=== PATIENT | female | born 1930 | race Caucasian/White ===

== ENCOUNTER 2018-12-29 13:45 | Observation (INO) | payer MEDICARE, BC ==
[2018-12-29] MEDS ORDERED: Sodium Chloride 0.9% 1,000 ML IV SCH ×2 (14:30→20:00)
--- NOTE | 2018-12-29 14:39 | EDM.PDOC ---
ED HPI GENERAL MEDICAL PROBLEM - General Source of Information: Reports: Patient, Family (granddaughter) History Limitations: Reports: No Limitations <Cesar Becker - Last Filed: 12/29/18 16:04> <David Carbajal - Last Filed: 12/29/18 17:22> - General Chief Complaint: Syncope Stated Complaint: DIZZINESS, FALLS Time Seen by Provider: 12/29/18 14:07 - History of Present Illness INITIAL COMMENTS - FREE TEXT/NARRATIVE: Patient brought to ER by granddaughter (Dotty Marin NP) after falling in her bathroom at her assisted living. She had just gotten up from bed and went to the bathroom for a BM; after getting up to back to her bed she suddenly fell and awoke to find herself lying on the floor. She denies any head or neck pain and doesn't think she hit her head. She did have some lightheadedness that is continuing. Had some blurry vision but now resolved. She doesn't take any blood thinners. She has had a couple UTIs in the past year but denies dysuria or abdominal pain. No significant cardiac history. Pt denies history of feeling lightheaded when she gets up from sitting or lying. (Cesar Becker) - Related Data Allergies Allergy/AdvReac Type Severity Reaction Status Date / Time levofloxacin [From Levaquin] Allergy Dizziness Verified 12/29/18 16:17 Penicillins Allergy Cannot Verified 12/29/18 16:17 Remember rofecoxib [From Vioxx] Allergy Cannot Verified 12/29/18 16:17 Remember Home Meds: Home Meds Levothyroxine [Synthroid] 50 mcg PO ACBREAKFAST 08/26/16 [History] Verapamil HCl [Verapamil] 120 mg PO DAILY 08/26/16 [History] Acetaminophen [Acetaminophen ER] 1,300 mg PO 0900 12/29/18 [History] Acetaminophen [Acetaminophen ER] 650 mg PO BEDTIME 12/29/18 [History] Calcium Citrate/Vitamin D3 [Calcitrate + Vit D Cap (315 MG/250 UNITS)] 1 each PO BID 12/29/18 [History] Cetirizine [ZyrTEC] 10 mg PO DAILY PRN 12/29/18 [History] Diclofenac Sodium [Voltaren 1%] 1 applic TOP BID 12/29/18 [History] Donepezil [Aricept] 10 mg PO BEDTIME 12/29/18 [History] Hydrocortisone [Hydrocortisone 1% Crm] 1 applic TOP BID PRN 12/29/18 [History] Loperamide [Imodium] 4 mg PO ASDIRECTED PRN 12/29/18 [History] Multivitamin W-Minerals/Lutein [Vision Plus Lutein Vitamin] 1 each PO DAILY [History] Polyethylene Glycol 3350 [MiraLAX] 17 gm PO Q2D 12/29/18 [History] Past Medical History HEENT History: Reports: Cataract, Impaired Vision Cardiovascular History: Reports: High Cholesterol Genitourinary History: Reports: Urinary Incontinence 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 WORKER History: Reports: Other (See Below) Other BROOM WORKER History: G-2 P-2 Musculoskeletal History: Reports: Arthritis Endocrine/Metabolic History: Reports: Hypothyroidism - Infectious Disease History Infectious Disease History: Reports: Shingles - Past Surgical History HEENT Surgical History: Reports: Cataract Surgery <Cesar Becker Last Filed: 12/29/18 16:04> Social & Family History - Family History Family Medical History: Noncontributory - Caffeine Use Caffeine Use: Reports: Coffee <Cesar Becker Last Filed: 12/29/18 16:04> ED ROS GENERAL - Review of Systems Review Of Systems: See Below Constitutional: Denies: Fever, Chills, Malaise, Weakness HEENT: Denies: Ear Pain, Sinus Problem, Throat Pain, Vertigo, Vision Change ( briefly but gone now) Respiratory: Denies: Shortness of Breath, Wheezing, Cough Cardiovascular: Reports: Lightheadedness, Syncope. Denies: Chest Pain GI/Abdominal: Denies: Abdominal Pain, Constipation, Diarrhea, Vomiting : Reports: Frequency (not very often she says). Denies: Dysuria, Flank Pain, Incontinence Musculoskeletal: Denies: Neck Pain, Shoulder Pain, Arm Pain, Back Pain, Hand Pain, Leg Pain, Foot Pain Skin: Denies: Cyanosis, Jaundice, Mottled, Pallor, Diaphoresis Neurological: Reports: Syncope. Denies: Confusion, Dizziness, Headache, Seizure , Trouble Speaking, Difficulty Walking Psychiatric: Denies: Agitation, Anxiety, Confusion <Cesar Becker Last Filed: 12/29/18 16:04> - Physical Exam Exam: See Below Exam Limited By: No Limitations General Appearance: Alert, WD/WN, No Apparent Distress Eye Exam: Bilateral Eye: EOMI, Normal Inspection (full visual rowley), PERRL Ears: Normal External Exam, Normal Canal (except significant cerumen blocking most of canal), Hearing Grossly Normal Nose: Normal Inspection, No Blood Throat/Mouth: Normal Inspection, Normal Lips, Normal Oropharynx, Normal Voice, No Airway Compromise Head Exam: Atraumatic, Normocephalic. No: Scalp Lacerations, Scalp Swelling, Scalp Abrasions, Scalp Ecchymosis, Scalp Hematoma, Scalp Tenderness, Facial Abrasions, Facial Ecchymosis, Facial Lacerations, Facial Swelling Neck: Normal Inspection, Supple, Non-Tender, Full Range of Motion. No: Tender Lateral, Tender Midline Respiratory/Chest: No Respiratory Distress, Lungs Clear, Normal Breath Sounds, No Accessory Muscle Use Cardiovascular: Regular Rate, Rhythm, No Murmur GI/Abdominal: Normal Bowel Sounds, Soft, Non-Tender, No Organomegaly, No Distention, No Abnormal Bruit, No Mass Neuro Exam (Abbreviated): Alert, Oriented, CN II-XII Intact, Normal Cognition, No Motor/Sensory Deficits Back Exam: Normal Inspection, Full Range of Motion. 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) Psychiatric: Normal Affect, Normal Mood Skin Exam: Warm, Dry, Intact, Normal Color, No Rash <Cesar Becker - Last Filed: 12/29/18 16:04> Course <Cesar Becker - Last Filed: 12/29/18 16:04> <David Carbajal - Last Filed: 12/29/18 17:22> - Vital Signs Last Recorded V/S: Last Vital Signs Temp 37.1 C 12/29/18 14:15 Pulse 72 12/29/18 14:15 Resp 14 12/29/18 14:15 BP 150/76 H 12/29/18 14:15 Pulse Ox 94 L 12/29/18 14:15 Orthostatic Blood Pressure [ 161/73 Standing] Orthostatic Blood Pressure [ 149/71 Sitting] Orthostatic Blood Pressure [ 160/70 Supine] - Orders/Labs/Meds Orders: Active Orders 24 hr Category Date Time Status EKG Documentation Completion [RC] ASDIRECTED Care 12/29/18 14:27 Active Orthostatic Vital Signs [RC] ASDIRECTED Care 12/29/18 14:39 Active UA W/MICROSCOPIC [URIN] Stat Lab 12/29/18 15:55 Ordered Sodium Chloride 0.9% [Normal Saline] 1,000 ml Med 12/29/18 14:30 Active IV ASDIRECTED EKG 12 Lead [EK] Routine Ther 12/29/18 14:27 Ordered Medication Orders Sodium Chloride (Normal Saline) 1,000 mls @ 999 mls/hr IV ASDIRECTED MAGUI Last Admin: 12/29/18 15:21 Dose: 999 mls/hr Labs: Laboratory Tests 12/29/18 12/29/18 Range/Units 14:53 14:53 WBC 10.90 H (5.00-10.00) 10^3/uL RBC 3.20 L (3.80-5.50) 10^6/uL Hgb 10.8 L (12.0-16.0) g/dL Hct 32.2 L (37.0-47.0) % MCV 100.6 H D (82.0-92.0) fL MCH 33.8 H (27.0-31.0) pg MCHC 33.5 (32.0-36.0) g/dL RDW 13.7 (11.5-14.5) % Plt Count 335 (150-400) 10^3/uL MPV 9.2 (7.4-10.4) fL Add Manual Diff Yes Neutrophils % (Manual) 86 H (50-70) % Lymphocytes % (Manual) 8 L (20-40) % Monocytes % (Manual) 5 (2-8) % Eosinophils % (Manual) 1 (1-3) % Basophils % (Manual) 0 (0-1) % Absolute Neutrophils 9.37 Lymphocytes # (Manual) 0.87 Monocytes # (Manual) 0.55 Eosinophils # (Manual) 0.11 Basophils # (Manual) 0 Sodium 135 L (136-145) mmol/L Potassium 4.0 (3.3-5.3) mmol/L Chloride 105 (98-115) mmol/L Carbon Dioxide 27.7 (21.0-32.0) mmol/L Anion Gap 6.3 (5-15) mmol/L BUN 36 H D (6-25) mg/dL Creatinine 1.48 H (0.51-1.17) mg/dL Est Cr Clr Drug Dosing 19.34 mL/min Estimated GFR (MDRD) 33 mL/min Glucose 104 H (75 - 99) mg/dL Calcium 9.0 (8.7-10.3) mg/dL Total Bilirubin 0.4 (0.2-1.0) mg/dL AST 18 (15-37) U/L ALT 17 (12-78) U/L Alkaline Phosphatase 69 (46-116) IU/L Total Protein 6.6 (6.4-8.2) g/dL Albumin 2.92 L (3.00-4.80) g/dL Meds: Medications Generic Name Dose Route Start Last Admin Trade Name Freq PRN Reason Stop Dose Admin Sodium Chloride 1,000 mls @ 999 mls/hr 12/29/18 14:30 12/29/18 15:21 Normal Saline IV 999 mls/hr ASDIRECTED [facility] Administration - Re-Assessments/Exams Free Text/Narrative Re-Assessment/Exam: 12/29/18 15:40 WBC is 10.9 no differential or UA yet. I auscultated again and heard some crackles in bases so will get CXR. Patient is feeling better now after some fluids are in. She is eating some toast and sitting comfortably. 12/29/18 16:04 ANC of 9.3 and still waiting on results from UA and CXR for etiology. Patient was feeling okay sitting but when she stood up to go for xray she became lightheaded again. We will likely either do observation or admission depending on further results. GIANCARLO Batista will be taking over at this time. (Cesar Becker) Departure <Cesar Becker - Last Filed: 12/29/18 16:04> - Departure Time of Disposition: 17:20 Condition: Fair <David Carbajal - Last Filed: 12/29/18 17:22> - Departure Disposition: Refer to Observation Clinical Impression: Syncope Qualifiers: Encounter type: initial encounter - Discharge Information Referrals: Heraclio,Marcial M, SUPERVISOR/PORT DIRECTOR [Primary Care Provider] - Forms: ED Department Discharge <Cesar Becker - Last Filed: 12/29/18 16:04> <David Carbajal - Last Filed: 12/29/18 17:22> - Assessment/Plan Assessment:: 1. Syncope 2. Orthostatic Hypotension (David Carbajal) Plan: 1. Admit to [facility] Obs 2. monitoring coordinator 3. supportive care (David Carbajal)
[2018-12-29 15:28] LABS: ANION GAP 6.3 mmol/L (5-15)
--- NOTE | 2018-12-29 16:30 | CR ---
[id number] RAD/RAD Chest PA And Lateral EXAM: RAD Chest PA And Lateral CLINICAL DATA: ELEVATED WHITE BLOOD CELL COUNT. CRACKLES ON AUSCULTATION. COMPARISON: NO PREVIOUS SIMILAR EXAM IS AVAILABLE. FINDINGS: There is scar at the left lung base. The lungs are hyperaerated. There is no infiltrate seen. There is mild pleural reaction at both lung bases. The cardiac silhouette is mildly prominent. IMPRESSION: NO PNEUMONIA. Dave Raza MD 12/29/18 2090 Thank you for allowing us to participate in the care of your patient.
[2018-12-29] MEDS ORDERED: Sodium Chloride 0.9% 10 ML Syringe FLUSH PRN (17:23)
--- NOTE | 2018-12-29 19:30 | PCM.HP ---
H&P History of Present Illness - General Date of Service: 12/29/18 Admit Problem/Dx: Admission Diagnosis/Problem Admission Diagnosis/Problem Syncope Source of Information: Patient, Old Records, Provider, RN History Limitations: Reports: No Limitations. Denies: Altered Mental Status - Related Data Allergies/Adverse Reactions: Allergies Allergy/AdvReac Type Severity Reaction Status Date / Time levofloxacin [From Levaquin] Allergy Dizziness Verified 12/29/18 16:17 Penicillins Allergy Cannot Verified 12/29/18 16:17 Remember rofecoxib [From Vioxx] Allergy Cannot Verified 12/29/18 16:17 Remember Home Medications: Home Meds Levothyroxine [Synthroid] 50 mcg PO ACBREAKFAST 08/26/16 [History] Acetaminophen [Acetaminophen ER] 1,300 mg PO 0900 12/29/18 [History] Acetaminophen [Acetaminophen ER] 650 mg PO BEDTIME 12/29/18 [History] Calcium Citrate/Vitamin D3 [Calcitrate + Vit D Cap (315 MG/250 UNITS)] 1 each PO BID 12/29/18 [History] Cetirizine [ZyrTEC] 10 mg PO DAILY PRN 12/29/18 [History] Diclofenac Sodium [Voltaren 1%] 1 applic TOP BID 12/29/18 [History] Donepezil [Aricept] 10 mg PO BEDTIME 12/29/18 [History] Hydrocortisone [Hydrocortisone 1% Crm] 1 applic TOP BID PRN 12/29/18 [History] Loperamide [Imodium] 4 mg PO ASDIRECTED PRN 12/29/18 [History] Multivitamin W-Minerals/Lutein [Vision Plus Lutein Vitamin] 1 each PO DAILY [History] Polyethylene Glycol 3350 [MiraLAX] 17 gm PO Q2D 12/29/18 [History] Verapamil HCl [Calan SR] 120 mg PO DAILY 12/29/18 [History] Past Medical History HEENT History: Reports: Cataract, Impaired Vision Cardiovascular History: Reports: High Cholesterol Genitourinary History: Reports: Urinary Incontinence 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: Reports: Other (See Below) Other OB/BYN History: G-2 P-2 Musculoskeletal History: Reports: Arthritis Psychiatric History: Reports: Dementia Endocrine/Metabolic History: Reports: Hypothyroidism - Infectious Disease History Infectious Disease History: Reports: Shingles - Past Surgical History HEENT Surgical History: Reports: Cataract Surgery GI Surgical History: Reports: Appendectomy, Cholecystectomy Social & Family History - Family History Family Medical History: Noncontributory (reviewd and non contributory to her current admission) - Tobacco Use Smoking Status *Q: Never Smoker Second Hand Smoke Exposure: No - Caffeine Use Caffeine Use: Reports: Coffee - Recreational Drug Use Recreational Drug Use: No H&P Review of Systems - Review of Systems: Review Of Systems: See Below General: Reports: No Symptoms HEENT: Reports: Post Nasal Drip. Denies: Headaches, Sinus Congestion, Sore Throat, Vertigo, Visual Changes Pulmonary: Reports: Cough Cardiovascular: Reports: Lightheadedness, Syncope. Denies: Edema, Claudication , Blood Pressure Problem Gastrointestinal: Reports: No Symptoms Genitourinary: Reports: No Symptoms Musculoskeletal: Reports: Joint Pain (Right knee pain) Skin: Reports: No Symptoms Psychiatric: Reports: Confusion, Anxiety. Denies: Cravings, Hallucinations, Hallucinations (Auditory) Neurological: Reports: Dizziness. Denies: Numbness, Paresthesia, Tremors, Difficulty Walking, Change in Speech Hematologic/Lymphatic: Reports: No Symptoms Immunologic: Reports: No Symptoms Exam - Exam Exam: See Below - Vital Signs Vital Signs: Last Vital Signs Temp 97.6 F 12/29/18 17:23 Pulse 57 L 12/29/18 17:23 Resp 16 12/29/18 17:23 BP 152/56 H 12/29/18 17:23 Pulse Ox 98 12/29/18 17:23 Orthostatic Blood Pressure [ 161/73 Standing] Orthostatic Blood Pressure [ 149/71 Sitting] Orthostatic Blood Pressure [ 160/70 Supine] Weight: 96 lb 3.2 oz - Exam Quality Assessment: No: Supplemental Oxygen General: Cooperative. No: Mild Distress HEENT: Hearing Intact, Other (Bilateral wax buildup cerumen) Neck: Supple, +2 Carotid Pulse wo Bruit. No: Full Range of Motion, Lymphadenopathy Lungs: Clear to Auscultation, Normal Respiratory Effort Cardiovascular: Regular Rate, Regular Rhythm GI/Abdominal Exam: Soft. No: Guarding, Rigid (Female) Exam: Deferred Back Exam: No: CVA Tenderness (L), CVA Tenderness (R) Extremities: Joint Swelling (Possible small effusion right knee medially effusion). No: Pedal Edema, Increased Warmth Peripheral Pulses: 1+: Carotid (R), 2+: Carotid (L), Radial (L), Radial (R) Skin: Warm, Dry, Intact Neurological: Cranial Nerves Intact, Normal Speech, Normal Tone, Sensation Intact Neuro Extensive - Mental Status: Alert, Oriented x3, Memory Intact Neuro Extensive - Motor, Sensory, Reflexes: CN II-XII Intact. No: Ataxia, Tongue Deviation (R), Receptive Aphasia, Expressive Aphasia, Hemeplagia (R), Hemeplagia (L) Psychiatric: Alert, Normal Affect, Anxious. No: Depressed, Hallucinations - Patient Data Lab Results Last 24 hrs: Laboratory Results - last 24 hr 12/29/18 12/29/18 12/29/18 Range/Units 14:53 14:53 16:38 WBC 10.90 H (5.00-10.00) 10^3/uL RBC 3.20 L (3.80-5.50) 10^6/uL Hgb 10.8 L (12.0-16.0) g/dL Hct 32.2 L (37.0-47.0) % MCV 100.6 H D (82.0-92.0) fL MCH 33.8 H (27.0-31.0) pg MCHC 33.5 (32.0-36.0) g/dL RDW 13.7 (11.5-14.5) % Plt Count 335 (150-400) 10^3/uL MPV 9.2 (7.4-10.4) fL Add Manual Diff Yes Neutrophils % (Manual) 86 H (50-70) % Lymphocytes % (Manual) 8 L (20-40) % Monocytes % (Manual) 5 (2-8) % Eosinophils % (Manual) 1 (1-3) % Basophils % (Manual) 0 (0-1) % Absolute Neutrophils 9.37 Lymphocytes # (Manual) 0.87 Monocytes # (Manual) 0.55 Eosinophils # (Manual) 0.11 Basophils # (Manual) 0 Sodium 135 L (136-145) mmol/L Potassium 4.0 (3.3-5.3) mmol/L Chloride 105 (98-115) mmol/L Carbon Dioxide 27.7 (21.0-32.0) mmol/L Anion Gap 6.3 (5-15) mmol/L BUN 36 H D (6-25) mg/dL Creatinine 1.48 H (0.51-1.17) mg/dL Est Cr Clr Drug Dosing 19.34 mL/min Estimated GFR (MDRD) 33 mL/min Glucose 104 H (75 - 99) mg/dL Calcium 9.0 (8.7-10.3) mg/dL Total Bilirubin 0.4 (0.2-1.0) mg/dL AST 18 (15-37) U/L ALT 17 (12-78) U/L Alkaline Phosphatase 69 (46-116) IU/L Total Protein 6.6 (6.4-8.2) g/dL Albumin 2.92 L (3.00-4.80) g/dL Specimen Type Urincc Urine Color Yellow (YELLOW) Urine Appearance Clear (CLEAR) Urine pH 5.5 (5.0-9.0) Ur Specific Orient 1.015 (1.005-1.030) Urine Protein 100 H (NEGATIVE) mg/dL Urine Glucose (UA) Negative (NEGATIVE) mg/dL Urine Ketones Negative (NEGATIVE) mg/dL Urine Occult Blood Negative (NEGATIVE) Urine Nitrite Negative (NEGATIVE) Urine Bilirubin Negative (NEGATIVE) Urine Urobilinogen 0.2 (0.2-1.0) E.U./dL Ur Leukocyte Esterase Negative (NEGATIVE) Urine RBC Not seen (0-5) /HPF Urine WBC 0-5 (0-5) /HPF Ur Epithelial Cells Moderate H /LPF Amorphous Sediment Few (0/HPF) /HPF Urine Bacteria Rare (NONE TO FEW) /HPF Urine Mucus Rare H (NEGATIVE) /LPF Result Diagrams: 12/29/18 14:53 12/29/18 14:53 Problem List Initiated/Reviewed/Updated: Yes Orders Last 24hrs: Active Orders 24 hr Category Date Time Status Patient Status [ADT] Routine ADT 12/29/18 17:23 Ordered Oxygen Therapy [RC] .PRN Care 12/29/18 17:23 Active Up With Assistance [RC] ASDIRECTED Care 12/29/18 17:23 Active VTE/DVT Education [RC] PER UNIT ROUTINE Care 12/29/18 17:23 Active Vital Signs [RC] 0700,1100,1500,1900,2300,0300 Care 12/29/18 17:23 Active Regular Diet [DIET] Diet 12/29/18 Dinner Active Sodium Chloride 0.9% [Saline Flush] Med 12/29/18 17:23 Active 10 ml FLUSH Q8HR PRN Saline Lock Insert [OM.PC] Routine Oth 12/29/18 17:23 Ordered Resuscitation Status Routine Resus Stat 12/29/18 17:23 Ordered EKG 12 Lead [EK] Routine Ther 12/29/18 14:27 Stop Req Medication Orders Sodium Chloride (Saline Flush) 10 ml FLUSH Q8HR PRN PRN Reason: keep vein open Assessment/Plan Comment:: History of present illness Very pleasant 88-year-old female was admitted into observation status after she presented to the ED after coming dizzy and fell at her assisted living facility this morning. The patient is slightly confused on the details however she stated she had just gotten up from bed and went to the bathroom for a BM; after getting up to her bed she suddenly fell and awoke to find herself lying on the her right side. She denies hitting her head. She presented to the ED she did have some ongoing lightheadedness with some blurry vision resolved prior to presentation. She doesn't take any blood thinners. She has had a couple UTIs in the past year but denies dysuria or abdominal pain. No significant cardiac history. Family desired observation as patient would be alone tonight with no one to monitor her. She denies any hearing loss. Pertinent ED workup/findings UA, non-concerning BP 152/86 Orthostatic hypotension Chest x-ray, no acute findings EKG, sinus rhythm, no concerns Primary hospital problem Dehydration, mild, prerenal Orthostatic hypotension Excesses cerumen buildup, bilateral ears Recent fall/fall risk Anemia, macrocytic, no anisocytosis, normal RDW, will w/u as outpatient Anxiety, situational, mildly acute Chronic problems Hypertension Hyperlipidemia Hypothyroidism CKD stage IV, cr cl. 19. Family refused nephrology in past. Dementia, Aricept Onychomycosis History of medication mixup at home Overall plan, Admit to observation, telemetry tonight, gentle IV fluids, bilateral ear irrigation, add Ramelteon. anticipate short stay.
[2018-12-29] MEDS ORDERED: Hydrocortisone 1% Crm 30 GM Tube TOP PRN (19:56)
[2018-12-29] MEDS ORDERED: Loperamide 2 MG Cap PO PRN ×2 (19:56→20:55)
[2018-12-29] MEDS: Donepezil 10 MG Tab PO SCH (21:18)
[2018-12-29] MEDS: Acetaminophen 650 MG Tab.ER PO SCH (21:18)
[2018-12-29] MEDS: Calcium Citrate/Vitamin D3 315 MG-250 Unit Tab PO SCH (21:18)
[2018-12-30] MEDS: Levothyroxine 50 MCG Tab PO SCH (06:37)
[2018-12-30] MEDS: Verapamil 120 MG Tab.ER PO SCH (08:38)
[2018-12-30] MEDS: Calcium Citrate/Vitamin D3 315 MG-250 Unit Tab PO SCH ×2 (08:39→20:46)
[2018-12-30] MEDS: Acetaminophen 650 MG Tab.ER PO SCH ×2 (08:39→20:46)
[2018-12-30] MEDS ORDERED: Verapamil 120 MG Tab.ER PO SCH (09:00)
[2018-12-30] MEDS ORDERED: VERAPAMIL HCL 120 MG PO SCH (09:00)
[2018-12-30 10:07] LABS: ANION GAP 11.5 mmol/L (5-15)
[2018-12-30] MEDS: Fluticasone Propionate Nasal Spray 16 GM Bottle NASBOTH SCH ×2 (12:24→20:47)
[2018-12-30] MEDS: Donepezil 10 MG Tab PO SCH (20:46)
--- NOTE | 2018-12-30 21:06 | PCM.PN ---
- General Info Date of Service: 12/30/18 Admission Dx/Problem (Free Text): Syncope Subjective Update: Mrs. Gonzalez reports feeling a little better than upon presentation, but not quite herself yet. She hasn't been up ambulating much today, but when she has gone to the bathroom, she has felt a little dizzy still. She admits to some recent rhinorrhea. Denies any nasal spray use. She denies any pain, headache, visual changes, tinnitus, swallowing difficulty, numbness, tingling, chest pain, palpitations, shortness of breath, or appetite change. Granddaughter reports generalized progressive decline in the past few months. Nursing reports patient is pleasantly confused, but with no other concerns. She has been on cardiac monitoring without any concerns noted. - Patient Data Vitals - Most Recent: Last Vital Signs Temp 37.1 C 12/30/18 18:42 Pulse 71 12/30/18 18:42 Resp 16 12/30/18 18:42 BP 159/67 H 12/30/18 18:42 Pulse Ox 97 12/30/18 18:42 Orthostatic Blood Pressure [ 161/73 Standing] Orthostatic Blood Pressure [ 149/71 Sitting] Orthostatic Blood Pressure [ 160/70 Supine] Weight - Most Recent: 43.636 kg I&O - Last 24 Hours: Intake & Output 12/30/18 12/30/18 12/30/18 06:59 14:59 22:59 Intake Total 150 720 Balance 150 720 Lab Results Last 24 Hours: Laboratory Results - last 24 hr 12/30/18 12/30/18 Range/Units 09:42 09:42 WBC 9.57 (5.00-10.00) 10^3/uL RBC 3.00 L (3.80-5.50) 10^6/uL Hgb 10.1 L (12.0-16.0) g/dL Hct 30.3 L (37.0-47.0) % MCV 101.0 H (82.0-92.0) fL MCH 33.7 H (27.0-31.0) pg MCHC 33.3 (32.0-36.0) g/dL RDW 13.8 (11.5-14.5) % Plt Count 311 (150-400) 10^3/uL MPV 8.7 (7.4-10.4) fL Immature Gran % (Auto) 0.3 (0.0-5.0) % Neut % (Auto) 89.9 H (50.0-70.0) % Lymph % (Auto) 4.1 L (20.0-40.0) % [place] % (Auto) 4.1 (2.0-8.0) % Eos % (Auto) 1.0 (1.0-3.0) % Baso % (Auto) 0.6 (0.0-1.0) % Immature Gran # (Auto) 0.03 (0.00-0.50) 10^3/uL Neut # (Auto) 8.60 H (2.50-7.00) 10^3/uL Lymph # (Auto) 0.39 L (1.00-4.00) 10^3/uL [place] # (Auto) 0.39 (0.10-0.80) 10^3/uL Eos # (Auto) 0.10 (0.10-0.30) 10^3/uL Baso # (Auto) 0.06 (0.00-0.10) 10^3/uL Sodium 141 (136-145) mmol/L Potassium 3.8 (3.3-5.3) mmol/L Chloride 106 (98-115) mmol/L Carbon Dioxide 27.3 (21.0-32.0) mmol/L Anion Gap 11.5 (5-15) mmol/L BUN 29 H (6-25) mg/dL Creatinine 1.32 H (0.51-1.17) mg/dL Est Cr Clr Drug Dosing 21.07 mL/min Estimated GFR (MDRD) 38 mL/min Glucose 144 H (75 - 99) mg/dL Calcium 8.6 L (8.7-10.3) mg/dL Med Orders - Current: Current Medications Acetaminophen (Tylenol Arthritis Pain) 650 mg PO BEDTIME [facility] Last Admin: 12/30/18 20:46 Dose: 650 mg Acetaminophen (Tylenol Arthritis Pain) 1,300 mg PO DAILY [facility] Last Admin: 12/30/18 08:39 Dose: 1,300 mg Calcium Citrate (Calcium Citrate + D) 1 tab PO BID [facility] Last Admin: 12/30/18 20:46 Dose: 1 tab Donepezil HCl (Aricept) 10 mg PO BEDTIME [facility] Last Admin: 12/30/18 20:46 Dose: 10 mg Fluticasone Propionate (Flonase) 0 gm NASBOTH BID [facility] Last Admin: 12/30/18 20:47 Dose: 1 spray Hydrocortisone (Hydrocortisone 1% Crm) 0 gm TOP BID PRN PRN Reason: Rash Levothyroxine Sodium (Synthroid) 50 mcg PO ACBREAKFAST [facility] Last Admin: 12/30/18 06:37 Dose: 50 mcg Loperamide HCl (Imodium) 2 mg PO ASDIRECTED PRN PRN Reason: Diarrhea Polyethylene Glycol (Miralax) 17 gm PO Q2D [facility] Ramelteon (Rozerem) 8 mg PO BEDTIME [facility] Last Admin: 12/30/18 20:46 Dose: 8 mg Sodium Chloride (Saline Flush) 10 ml FLUSH Q8HR PRN PRN Reason: keep vein open Verapamil HCl (Calan Sr) 120 mg PO DAILY [facility] Last Admin: 12/30/18 08:38 Dose: 120 mg Discontinued Medications Sodium Chloride (Normal Saline) 1,000 mls @ 999 mls/hr IV ASDIRECTED [facility] Last Admin: 12/29/18 15:21 Dose: 999 mls/hr Sodium Chloride (Normal Saline) 1,000 mls @ 65 mls/hr IV ASDIRECTED [facility] Loperamide HCl (Imodium) 4 mg PO ASDIRECTED PRN PRN Reason: Diarrhea - Exam Physical Findings Comments:: GENERAL: Elderly white female lying in hospital bed in no acute distress. HEENT: Normocephalic, atraumatic. Conjunctiva clear. Nares patent with mild erythema bilaterally. Mucous membranes moist, posterior pharynx with mild postnasal drip. R TM without effusion. L TM obstructed due to cerumen. NECK: Supple, no masses. CV: Regular rate and rhythm, no murmurs, rubs, or gallops. 2+ radial pulses. PULMONARY: Normal effort, diminished airflow in bases, otherwise clear to auscultation bilaterally, no wheezes, rales, or rhonchi. ABDOMEN: Positive bowel sounds, soft, nontender, nondistended. EXTREMITIES: No edema, cyanosis, or clubbing. MUSCULOSKELETAL: Moves all extremities well. NEUROLOGICAL: No obvious deficits. DERMATOLOGIC: No rashes or suspicious lesions in exposed areas. PSYCHIATRIC: Alert, interactive, appropriate affect, notably mildly confused. - Problem List Review Problem List Initiated/Reviewed/Updated: Yes - My Orders Last 24 Hours: My Active Orders 12/30/18 11:45 Fluticasone Propionate [Flonase] 0 gm NASBOTH BID - Plan Plan:: HPI summary: 88-year-old female with a history notable for HTN, hypothyroidism, and dementia who presented to the [facility] ED following an episode in which she reported becoming dizzy and then falling at the assisted living facility where she resides. She was slightly confused and didn't know what happened other than she awoke to find herself lying on her right side. In the ED, she did have some ongoing lightheadedness with some reported blurry vision. She notably doesn't have significant neurologic disease, cardiovascular disease, or anticoagulation. Work-up with CBC, CMP, UA, CXR, and EKG overall unremarkable. She was admitted into observation status for further monitoring. Admission H&P states that there was orthostatic hypotension noted in the ED, but review of the blood pressures and pulses notes that there was not the necessary drop in BP or rise in BP to be considered orthostatic. Hospitalization problems: # Syncope/presyncope # Fall # Leukocytosis, resolved # Rhinitis # L cerumen impaction # Dementia She reports improvement, but not resolution of lightheadedness which she states is an overall new complaint. Exam notes rhinorrhea as well as impacted L ear canal (R was successfully disimpacted with ear wash), but no neurological deficits to necessitate head imaging at this time. Leukocytosis noted on admission resolved on recheck. Granddaughter reports generalized progressive decline in the past few months, which is also likely playing a role. Volume status also likely chronically mildly depleted additionally playing a role. - Encourage fluid intake and ambulation throughout the day while monitoring lightheadedness - Flonase nasal spray BID - Debrox ear drops followed by nursing ear wash next week - Continue donepezil - Consider physical therapy referral as outpatient Chronic, stable conditions: # HTN: Stable. Verapamil 120mg. # Constipation: Stable. PEG. # CKD, stage IV, with proteinuria: Baseline Cr 1.7 lately. Previously declined nephrology consultation. Cr 1.48 on admission and UA with 100 protein. Cr 1.32 on 12/30/18. Obtain basic CKD labs tomorrow, including Fe panel, reticulocyte count, and PTH. # [place], macrocytic: Obtain folate and B12. # Hypothyroidism: 11/01/18 TSH 1.81. Levothyroxine 50mcg. # Osteoporosis: 11/09/17 DEXA with osteoporosis. Ca/D. Received denosumab 11/2017 , but not since; check into status with patient/PCP. # Osteoarthritis, generalized: Stable. Tylenol BID, diclofenac gel prn. Hospitalization details: # FEN: No IVF. Electrolytes normal. Regular diet. # PPX: Ambulate for DVT ppx. Ramelteon for delirium ppx. # Code status: FULL. # Emergency contact: Son, Aleks, who was updated by nursing staff when he arrived following rounds. Granddaughter, Dotty, was updated by myself. # Disposition: Continue in observation status with interventions discussed above. If no concerns arise in the next day, anticipate discharge to [facility] tomorrow with consideration of physical therapy evaluation and treatment as outpatient/home health. Given progressive dementia, recommend referral for discussion of health care directives in the future.
[2018-12-31] MEDS: Levothyroxine 50 MCG Tab PO SCH (07:26)
[2018-12-31] MEDS: Verapamil 120 MG Tab.ER PO SCH (08:30)
[2018-12-31] MEDS: Calcium Citrate/Vitamin D3 315 MG-250 Unit Tab PO SCH (08:31)
[2018-12-31] MEDS: Acetaminophen 650 MG Tab.ER PO SCH (08:31)
[2018-12-31 08:35] VITALS: BP 159/75
[2018-12-31] MEDS: Fluticasone Propionate Nasal Spray 16 GM Bottle NASBOTH SCH (08:35)
[2018-12-31] MEDS ORDERED: Polyethylene Glycol 3350 Powder 17 GM Packet PO SCH (09:00)
--- NOTE | 2018-12-31 10:14 | PCM.DCSUM1 ---
Discharge Summary - Hospital Course Free Text/Narrative:: Date of admission: 12/29/18 Date of discharge: 12/31/18 Admission diagnoses: # Syncope/presyncope # Fall # Leukocytosis, resolved # Rhinitis # L cerumen impaction # Dementia # Osteoporosis Discharge diagnoses: # Syncope/presyncope # Fall # Leukocytosis, resolved # Rhinitis # L cerumen impaction # Dementia # Osteoporosis Hospital course: 88-year-old female with a history notable for HTN, hypothyroidism, and dementia who presented to the [facility] ED following an episode in which she reported becoming dizzy and then falling at the assisted living facility where she resides. She was slightly confused and didn't know what happened other than she awoke to find herself lying on her right side. In the ED, she did have some ongoing lightheadedness with some reported blurry vision. She notably doesn't have significant neurologic disease, cardiovascular disease, or anticoagulation. Work-up with CBC, CMP, UA, CXR, and EKG overall unremarkable. She was admitted into observation status for further monitoring. Of note, admission H&P states that there was orthostatic hypotension noted in the ED, but review of the blood pressures and pulses notes that there was not the necessary drop in BP or rise in BP to be considered orthostatic. She had improvement with gentle fluid resuscitation and encouragement of po intake in 24hrs and resolution of symptoms on day of discharge. Exam noted rhinorrhea which improved with Flonase initiation as well as cerumen impaction of bilateral ear canals for which R was successfully disimpacted with ear wash. No neurological deficits were noted to necessitate head imaging and telemetry monitoring for the first 24hrs of her stay noted no abnormalities. Leukocytosis noted on admission resolved on recheck. Granddaughter reports generalized progressive decline in the past few months, which is also likely playing a role. Chronically mildly depleted volume status likely playing a significant role in syncope/presyncope symptoms on admission as well as CKD. She was continued on other medications for chronic medical conditions. Given her clinical improvement, she was discharged back to [facility] in good condition. Of note, she had 11/09/17 DEXA with osteoporosis and received denosumab 11/2017, but not since. Discharge instructions: - Encourage increased oral intake - Referral placed to physical therapy, for which home health services are warranted (see Face to Face below) - Flonase daily for the next 7 days and as needed for congestion thereafter - Debrox drops nightly in L ear until follow-up appt - Continue other medications as prescribed Follow-up recommendations: - Follow-up with PCP in 7-10 days - Nursing L ear wash at follow-up visit - Prolia due; plan to order and give at follow-up visit following Calcium level being confirmed as in the normal range - Obtain labs to further evaluate CKD and macrocytosis, which have been ordered in [facility] - Follow-up on progress of physical therapy - Consider ongoing close assessment of mobility and safety status in order to ensure appropriate location of care and consider SNF in the future Face to Face for Home Health Order Services: Home health physical therapy Clinical findings to support the need for home health: Developing home therapy program, pain and symptom control, in home safety assessment and instruction, strength and endurance. Support for home bound status: Limited are decreased endurance due to muscle weakness, unsteady gait, unable to drive. - Discharge Data Discharge Date: 12/31/18 Discharge Disposition: Home, W Home Health Agency 06 Condition: Good - Patient Instructions Diet: Usual Diet as Tolerated, Drink 8-10+ Glasses/Day Activity: As Tolerated - Discharge Plan *PRESCRIPTION DRUG MONITORING PROGRAM REVIEWED*: Not Applicable *COPY OF PRESCRIPTION DRUG MONITORING REPORT IN PATIENT WEN: Not Applicable Prescriptions/Med Rec: Carbamide Peroxide [Debrox 6.5% Otic Soln] 15 ml OT BEDTIME 7 Days #1 bottle Fluticasone Propionate [Flonase] 0 gm NASBOTH DAILY 7 Days #1 bottle Home Medications: Home Meds Levothyroxine [Synthroid] 50 mcg PO ACBREAKFAST 08/26/16 [History] Acetaminophen [Acetaminophen ER] 1,300 mg PO 0900 12/29/18 [History] Acetaminophen [Acetaminophen ER] 650 mg PO BEDTIME 12/29/18 [History] Calcium Citrate/Vitamin D3 [Calcitrate + Vit D Cap (315 MG/250 UNITS)] 1 each PO BID 12/29/18 [History] Cetirizine [ZyrTEC] 10 mg PO DAILY PRN 12/29/18 [History] Diclofenac Sodium [Voltaren 1% Gel] 1 applic TOP BID 12/29/18 [History] Donepezil [Aricept] 10 mg PO BEDTIME 12/29/18 [History] Hydrocortisone [Hydrocortisone 1% Crm] 1 applic TOP BID PRN 12/29/18 [History] Loperamide [Imodium] 4 mg PO ASDIRECTED PRN 12/29/18 [History] Multivitamin W-Minerals/Lutein [Vision Plus Lutein Vitamin] 1 each PO DAILY [History] Polyethylene Glycol 3350 [MiraLAX] 17 gm PO Q2D 12/29/18 [History] Verapamil HCl [Calan SR] 120 mg PO DAILY 12/29/18 [History] Carbamide Peroxide [Debrox 6.5% Otic Soln] 15 ml OT BEDTIME 7 Days #1 bottle [Rx] Fluticasone Propionate [Flonase] 0 gm NASBOTH DAILY 7 Days #1 bottle 12/31/18 [ Rx] Referrals: [facility] [Primary Care Provider] - 01/07/19 (with ear wash) - Discharge Summary/Plan Comment DC Time >30 min.: Yes - General Info Subjective Update: Mrs. Gonzalez reports feeling well this morning, much better than upon presentation. Ambulating without dizziness. Typically she ambulates without assistive devices at the [facility] where she resides. No recent physical therapy, but would be agreeable to receiving. Improved rhinorrhea with use of nasal spray. She denies any pain, headache, visual changes, tinnitus, or appetite change. Son states that she hasn't been wearing her LifeAlert lately. Nursing reports patient is pleasantly confused, but with no other concerns. - Patient Data Vitals - Most Recent: Last Vital Signs Temp 36.6 C 12/31/18 06:52 Pulse 74 12/31/18 08:30 Resp 20 12/31/18 06:52 BP 159/75 H 12/31/18 08:30 Pulse Ox 95 12/31/18 06:52 Orthostatic Blood Pressure [ 161/73 Standing] Orthostatic Blood Pressure [ 149/71 Sitting] Orthostatic Blood Pressure [ 160/70 Supine] Weight - Most Recent: 43.636 kg I&O - Last 24 hours: Intake & Output 12/30/18 12/31/18 12/31/18 22:59 06:59 14:59 Intake Total 550 100 Balance 550 100 Med Orders - Current: Current Medications Acetaminophen (Tylenol Arthritis Pain) 650 mg PO BEDTIME [facility] Last Admin: 12/30/18 20:46 Dose: 650 mg Acetaminophen (Tylenol Arthritis Pain) 1,300 mg PO DAILY [facility] Last Admin: 12/31/18 08:31 Dose: 1,300 mg Calcium Citrate (Calcium Citrate + D) 1 tab PO BID [facility] Last Admin: 12/31/18 08:31 Dose: 1 tab Donepezil HCl (Aricept) 10 mg PO BEDTIME [facility] Last Admin: 12/30/18 20:46 Dose: 10 mg Fluticasone Propionate (Flonase) 0 gm NASBOTH BID [facility] Last Admin: 12/31/18 08:35 Dose: 1 spray Hydrocortisone (Hydrocortisone 1% Crm) 0 gm TOP BID PRN PRN Reason: Rash Levothyroxine Sodium (Synthroid) 50 mcg PO ACBREAKFAST [facility] Last Admin: 12/31/18 07:26 Dose: 50 mcg Loperamide HCl (Imodium) 2 mg PO ASDIRECTED PRN PRN Reason: Diarrhea Polyethylene Glycol (Miralax) 17 gm PO Q2D [facility] Last Admin: 12/31/18 08:39 Dose: 17 gm Ramelteon (Rozerem) 8 mg PO BEDTIME [facility] Last Admin: 12/30/18 20:46 Dose: 8 mg Sodium Chloride (Saline Flush) 10 ml FLUSH Q8HR PRN PRN Reason: keep vein open Last Admin: 12/31/18 07:30 Dose: 10 ml Verapamil HCl (Calan Sr) 120 mg PO DAILY [facility] Last Admin: 12/31/18 08:30 Dose: 120 mg Discontinued Medications Sodium Chloride (Normal Saline) 1,000 mls @ 999 mls/hr IV ASDIRECTED [facility] Last Admin: 12/29/18 15:21 Dose: 999 mls/hr Sodium Chloride (Normal Saline) 1,000 mls @ 65 mls/hr IV ASDIRECTED [facility] Loperamide HCl (Imodium) 4 mg PO ASDIRECTED PRN PRN Reason: Diarrhea - Exam Physical Findings Comments:: GENERAL: Elderly white female sitting in bedside chair in no acute distress. Son Aleks, at bedside. HEENT: Normocephalic, atraumatic. Conjunctiva clear. Nares patent with mild erythema bilaterally. Mucous membranes moist. NECK: Supple, no masses. CV: Regular rate and rhythm, no murmurs, rubs, or gallops. 2+ radial pulses. PULMONARY: Normal effort, diminished airflow in bases, otherwise clear to auscultation bilaterally, no wheezes, rales, or rhonchi. ABDOMEN: Positive bowel sounds, soft, nontender, nondistended. EXTREMITIES: No edema, cyanosis, or clubbing. MUSCULOSKELETAL: Moves all extremities well. NEUROLOGICAL: No obvious deficits. DERMATOLOGIC: No rashes or suspicious lesions in exposed areas. PSYCHIATRIC: Alert, interactive, appropriate affect, mildly confused.
== END 2018-12-31 10:45 | disposition home health service (06) ==
LOC: KA.ED 13:45 → KA.MS 17:23
PROVIDERS: ADMIT Physician Assistant Medical; ATTEND Family Medicine
DX: R55 Syncope and collapse (principal); J31.0 Chronic rhinitis; H61.23 Impacted cerumen, bilateral; D72.829 Elevated white blood cell count, unspecified; I12.9 Hypertensive chronic kidney disease with stage 1 through stage 4 chronic kidney disease, or unspecified chronic kidney disease; N18.4 Chronic kidney disease, stage 4 (severe); E03.9 Hypothyroidism, unspecified; F03.90 Unspecified dementia, unspecified severity, without behavioral disturbance, psychotic disturbance, mood disturbance, and anxiety; E78.00 Pure hypercholesterolemia, unspecified; M81.0 Age-related osteoporosis without current pathological fracture; M15.9 Polyosteoarthritis, unspecified; W19.XXXA Unspecified fall, initial encounter; Z88.0 Allergy status to penicillin; Z88.1 Allergy status to other antibiotic agents; Z88.6 Allergy status to analgesic agent; Z79.899 Other long term (current) drug therapy
CPT/HCPCS: 36415; 71046; 80048; 80053; 81001; 85025; 93005; 96360; 99284; 99285-25; A9270-GY; G0378; J7030

== ENCOUNTER 2019-02-11 11:10 | Inpatient (IN) | payer MEDICARE, BC ==
[2019-02-11] MEDS ORDERED: Sodium Chloride 0.9% 10 ML Syringe FLUSH PRN (11:34)
--- NOTE | 2019-02-11 11:38 | EDM.PDOC ---
ED HPI GENERAL MEDICAL PROBLEM - General Chief Complaint: General Stated Complaint: Fall Time Seen by Provider: 02/11/19 11:26 Source of Information: Reports: Patient, Family (Daughter) History Limitations: Reports: No Limitations - History of Present Illness INITIAL COMMENTS - FREE TEXT/NARRATIVE: Patient is an 89-year-old female who presents to the emergency department via EMS this morning for complaint of multiple falls and increasing confusion. Patient resides at [facility]. Patient's granddaughter is Dotty Marin from [facility], and she states that her father was speaking to the mother this morning and she seemed confused and she told her that she fell 4 times this morning. These falls were unwitnessed. Granddaughter says that her grandmother seemed to have a 10 second delay in responding, so she decided to contact EMS for transport to ER. Upon presentation, very pleasant elderly woman who is moderately confused with history of dementia at baseline, however, recognize her granddaughter without difficulty. At this time patient states that she has no discomfort, but said that she felt weak and fell 4 times this morning. Patient does not describe falls. Patient does state lower back hurts. Patient had similar symptoms and presented to the emergency department this past December and was admitted for observation. No definitive diagnosis at that time. Patient denies any other pain, chest pain, shortness of breath, nausea, vomiting, diarrhea, dysuria, blurry vision, or headache. Onset: Gradual, Unknown/Unsure Location: Reports: Back Quality: Reports: Ache Severity: Mild Improves with: Reports: None Worsens with: Reports: Movement Context: Reports: Other (Unwitnessed fall in elderly) Associated Symptoms: Reports: No Other Symptoms - Related Data Allergies Allergy/AdvReac Type Severity Reaction Status Date / Time levofloxacin [From Levaquin] Allergy Dizziness Verified 02/11/19 11:28 Penicillins Allergy Cannot Verified 02/11/19 11:28 Remember rofecoxib [From Vioxx] Allergy Cannot Verified 02/11/19 11:28 Remember Home Meds: Home Meds Levothyroxine [Synthroid] 50 mcg PO ACBREAKFAST 08/26/16 [History] Acetaminophen [Acetaminophen ER] 1,300 mg PO 0900 12/29/18 [History] Acetaminophen [Acetaminophen ER] 650 mg PO BEDTIME 12/29/18 [History] Calcium Citrate/Vitamin D3 [Calcitrate + Vit D Cap (315 MG/250 UNITS)] 1 each PO BID 12/29/18 [History] Donepezil [Aricept] 10 mg PO BEDTIME 12/29/18 [History] Loperamide [Imodium] 4 mg PO ASDIRECTED PRN 12/29/18 [History] Multivitamin W-Minerals/Lutein [Vision Plus Lutein Vitamin] 1 each PO DAILY [History] Polyethylene Glycol 3350 [MiraLAX] 17 gm PO Q2D 12/29/18 [History] Verapamil HCl [Calan SR] 120 mg PO DAILY 12/29/18 [History] Fluticasone Propionate [Flonase] 0 gm NASBOTH DAILY 7 Days #1 bottle 12/31/18 [ Rx] Past Medical History HEENT History: Reports: Cataract, Impaired Vision Cardiovascular History: Reports: High Cholesterol Genitourinary History: Reports: Urinary Incontinence CORPORATE LAWYER History: Reports: Other (See Below) Other CORPORATE LAWYER History: G-2 P-2 Musculoskeletal History: Reports: Arthritis Psychiatric History: Reports: Dementia Endocrine/Metabolic History: Reports: Hypothyroidism - Infectious Disease History Infectious Disease History: Reports: Shingles - Past Surgical History HEENT Surgical History: Reports: Cataract Surgery GI Surgical History: Reports: Appendectomy, Cholecystectomy Social & Family History - Family History Family Medical History: Noncontributory (reviewd and non contributory to her current admission) - Caffeine Use Caffeine Use: Reports: Coffee ED ROS GENERAL - Review of Systems Review Of Systems: ROS reveals no pertinent complaints other than HPI. Constitutional: Reports: No Symptoms HEENT: Reports: No Symptoms Respiratory: Reports: No Symptoms Cardiovascular: Reports: No Symptoms Endocrine: Reports: No Symptoms GI/Abdominal: Reports: No Symptoms : Reports: No Symptoms Musculoskeletal: Reports: Back Pain Skin: Reports: No Symptoms Neurological: Reports: Confusion Psychiatric: Reports: No Symptoms Hematologic/Lymphatic: Reports: No Symptoms Immunologic: Reports: No Symptoms ED EXAM, GENERAL - Physical Exam Exam: See Below Exam Limited By: Altered Mental Status (Dementia at baseline) Eye Exam: Bilateral Eye: Normal Inspection Nose: Normal Inspection, Normal Mucosa, No Blood Throat/Mouth: Normal Inspection, Normal Oropharynx, No Airway Compromise Head: Atraumatic, Normocephalic Neck: Normal Inspection Respiratory/Chest: No Respiratory Distress, No Accessory Muscle Use, Chest Non- Tender, Decreased Breath Sounds (Bibasilar) Cardiovascular: Regular Rate, Rhythm, No Murmur GI/Abdominal: Normal Bowel Sounds, Soft, Non-Tender, No Organomegaly, No Distention, No Abnormal Bruit, No Mass, Pelvis Stable (Female) Exam: Other (Prolapsed uterus) Back Exam: Paraspinal Tenderness (Minimal at inferior lumbar region) Extremities: Normal Inspection, Non-Tender, Pedal Edema (2+ bilateral) Neurological: Alert, Confused (Dementia at baseline) Psychiatric: Normal Affect, Normal Mood Skin Exam: Warm, Dry, Intact, Normal Color, No Rash EKG INTERPRETATION EKG Date: 02/11/19 Time: 11:40 Rhythm: Other (Sinus bradycardia) Rate (Beats/Min): 55 [place]: Normal P-Wave: Present QRS: Normal ST-T: Normal QT: Normal Comparison: No Change Course - Vital Signs Last Recorded V/S: Last Vital Signs Temp 96.3 F 02/11/19 11:22 Pulse 65 02/11/19 11:22 Resp 17 02/11/19 11:22 BP 145/32 H 02/11/19 11:22 Pulse Ox 95 02/11/19 11:22 - Orders/Labs/Meds Orders: Active Orders 24 hr Category Date Time Status EKG Documentation Completion [RC] ASDIRECTED Care 02/11/19 11:29 Ordered Chest 1V Frontal [CR] Stat Exams 02/11/19 11:29 Ordered Lumbar Spine 2 or 3V [CR] Stat Exams 02/11/19 11:26 Ordered Sacrum Coccyx Min 2V [CR] Stat Exams 02/11/19 11:26 Ordered CBC WITH AUTO DIFF [HEME] Stat Lab 02/11/19 11:26 Ordered COMPREHENSIVE METABOLIC PN,CMP [CHEM] Stat Lab 02/11/19 11:26 Ordered INR,PT,PROTHROMBIN TIME [COAG] Stat Lab 02/11/19 11:26 Ordered MAGNESIUM [CHEM] Stat Lab 02/11/19 11:26 Ordered PTT,PARTIAL THROMBOPLSTIN TIME [COAG] Stat Lab 02/11/19 11:26 Ordered EKG 12 Lead [EK] Routine Ther 02/11/19 11:26 Ordered - Radiology Interpretation Free Text/Narrative:: Chest shows no acute cardiopulmonary process. Lumbar and sacrum show no acute fracture - Re-Assessments/Exams Free Text/Narrative Re-Assessment/Exam: 02/11/19 13:18 Patient afebrile, vital signs stable, denies any pain. Discussed case with Marcial Pulliam and Dotty Marin, patient will be admitted inpatient and followed by [facility] providers. Departure - Departure Time of Disposition: 13:19 Disposition: Admitted As Inpatient 68 Condition: Fair Clinical Impression: Near syncope, Fall in elderly patient, Renal insufficiency - Discharge Information Referrals: Marcial Pulliam, [employer] [Primary Care Provider] - - My Orders Last 24 Hours: My Active Orders 02/11/19 11:26 Lumbar Spine 2 or 3V [CR] Stat Sacrum Coccyx Min 2V [CR] Stat CBC WITH AUTO DIFF [HEME] Stat COMPREHENSIVE METABOLIC PN,CMP [CHEM] Stat INR,PT,PROTHROMBIN TIME [COAG] Stat MAGNESIUM [CHEM] Stat PTT,PARTIAL THROMBOPLSTIN TIME [COAG] Stat EKG 12 Lead [EK] Routine 02/11/19 11:29 EKG Documentation Completion [RC] ASDIRECTED Chest 1V Frontal [CR] Stat - Assessment/Plan Last 24 Hours: My Active Orders 02/11/19 11:26 Lumbar Spine 2 or 3V [CR] Stat Sacrum Coccyx Min 2V [CR] Stat CBC WITH AUTO DIFF [HEME] Stat COMPREHENSIVE METABOLIC PN,CMP [CHEM] Stat INR,PT,PROTHROMBIN TIME [COAG] Stat MAGNESIUM [CHEM] Stat PTT,PARTIAL THROMBOPLSTIN TIME [COAG] Stat EKG 12 Lead [EK] Routine 02/11/19 11:29 EKG Documentation Completion [RC] ASDIRECTED Chest 1V Frontal [CR] Stat Assessment:: Near syncope Plan: Admit inpatient to [facility] Pull[facility]
[2019-02-11] MEDS ORDERED: Sodium Chloride 0.9% 500 ML IV SCH (11:45)
[2019-02-11] MEDS ORDERED: Sodium Chloride 0.9% 500 ML IV ONE (12:17)
[2019-02-11 12:21] LABS: ANION GAP 11.9 mmol/L (5-15); CHLORIDE,CL 105 mmol/L (98-115); SODIUM,NA 141 mmol/L (136-145)
[2019-02-11] MEDS ORDERED: Atropine 0.1 MG/ML 10 ML Syringe IVPUSH PRN (15:53)
[2019-02-11] MEDS ORDERED: Nitroglycerin 0.4 MG Tab.SL SL PRN (15:53)
[2019-02-11] MEDS ORDERED: EPINEPHrine 1:10,000 1 MG/10 ML Syringe IVPUSH PRN (15:53)
[2019-02-11] MEDS ORDERED: Lidocaine 2% 100 MG/5 ML Syringe IVPUSH PRN (15:53)
[2019-02-11] MEDS ORDERED: Loperamide 2 MG Cap PO PRN (15:53)
[2019-02-11] MEDS: Calcium Citrate/Vitamin D3 315 MG-250 Unit Tab PO SCH (21:33)
[2019-02-11] MEDS: Lutein/Minerals/Vitamins A, C & E Tab PO SCH (21:33)
[2019-02-11] MEDS: Acetaminophen 650 MG Tab.ER PO SCH (21:33)
[2019-02-11] MEDS: Donepezil 10 MG Tab PO SCH (21:33)
[2019-02-12] MEDS: Levothyroxine 50 MCG Tab PO SCH (07:30)
[2019-02-12] MEDS: Fluticasone Propionate Nasal Spray 16 GM Bottle NASBOTH SCH ×2 (09:15→09:25)
[2019-02-12] MEDS: Acetaminophen 650 MG Tab.ER PO SCH ×2 (09:15→20:10)
[2019-02-12] MEDS: Verapamil 120 MG Tab.ER PO SCH (09:16)
[2019-02-12] MEDS: Calcium Citrate/Vitamin D3 315 MG-250 Unit Tab PO SCH ×2 (09:16→20:11)
[2019-02-12] MEDS: Polyethylene Glycol 3350 Powder 17 GM Packet PO SCH (09:25)
--- NOTE | 2019-02-12 09:39 | PCM.HP ---
H&P History of Present Illness - General Date of Service: 02/12/19 Admit Problem/Dx: Admission Diagnosis/Problem Admission Diagnosis/Problem Near syncope Source of Information: Patient, Family, Old Records, Provider, RN History Limitations: Reports: No Limitations - History of Present Illness Initial Comments - Free Text/Narative: Mrs Gonzalez is a very pleasant elderly lady was admitted to inpatient status due to weakness, debilitation, multiple falls increasing confusion and symptoms suggestions of syncope episodes. Patient resides at [facility] and her granddaughter is a nurse practitioner was in the ED to provide history stating that her father was speaking to the mother the morning of admission when she seemed confused and she told her that she fell 4 times this morning. Granddaughter says that her grandmother seemed to have a 10-second delay in responding, so she decided to contact EMS for transport to ER. Since presentation upon arrival in the ED moderately confused with history of dementia at baseline, however, recognize her granddaughter without difficulty. At this time patient states that she has no discomfort, but said that she felt weak and fell 4 times this morning. Patient does not describe falls. At the time of presentation the patient denied chest pain, shortness of breath, n/v/d, dysuria, visual disturbance or headaches. She was vague on describing her falls. Recent admission a few weeks ago into observation without any definitive diagnosis. Bilateral Hip Pain Score (Numeric/FACES): 4 Lower Back Pain Score (Numeric/FACES): 3 - Related Data Allergies/Adverse Reactions: Allergies Allergy/AdvReac Type Severity Reaction Status Date / Time levofloxacin [From Levaquin] Allergy Dizziness Verified 02/11/19 11:28 Penicillins Allergy Cannot Verified 02/11/19 11:28 Remember rofecoxib [From Vioxx] Allergy Cannot Verified 02/11/19 11:28 Remember Home Medications: Home Meds Levothyroxine [Synthroid] 50 mcg PO ACBREAKFAST 08/26/16 [History] Acetaminophen [Acetaminophen ER] 1,300 mg PO 0900 12/29/18 [History] Acetaminophen [Acetaminophen ER] 650 mg PO BEDTIME 12/29/18 [History] Calcium Citrate/Vitamin D3 [Calcitrate + Vit D Cap (315 MG/250 UNITS)] 1 each PO BID 12/29/18 [History] Donepezil [Aricept] 10 mg PO BEDTIME 12/29/18 [History] Loperamide [Imodium] 4 mg PO ASDIRECTED PRN 12/29/18 [History] Multivitamin W-Minerals/Lutein [Vision Plus Lutein Vitamin] 1 each PO BEDTIME [History] Polyethylene Glycol 3350 [MiraLAX] 17 gm PO Q2D 12/29/18 [History] Verapamil HCl [Calan SR] 120 mg PO DAILY 12/29/18 [History] Fluticasone Propionate [Flonase] 0 gm NASBOTH DAILY 7 Days #1 bottle 12/31/18 [ Rx] Past Medical History HEENT History: Reports: Cataract, Impaired Vision Cardiovascular History: Reports: High Cholesterol, Hypertension Genitourinary History: Reports: Urinary Incontinence HOEING ROW BOSS History: Reports: Other (See Below) Other OB/BYN History: G-2 P-2 Musculoskeletal History: Reports: Arthritis Psychiatric History: Reports: Dementia Endocrine/Metabolic History: Reports: Hypothyroidism - Infectious Disease History Infectious Disease History: Reports: Shingles - Past Surgical History HEENT Surgical History: Reports: Cataract Surgery GI Surgical History: Reports: Appendectomy, Cholecystectomy Social & Family History - Family History HEENT: Reports: None Cardiac: Reports: None Respiratory: Reports: None GI: Reports: GI bleed : Reports: None OBGYN: Reports: None Musculoskeletal: Reports: None Neurological: Reports: Dementia. Denies: Alzheimers Disease Psychiatric: Reports: None Endocrine/Metabolic: Reports: None Hematologic: Reports: None Immunologic: Reports: None Dermatologic: Reports: None - Tobacco Use Smoking Status *Q: Never Smoker Second Hand Smoke Exposure: No - Caffeine Use Caffeine Use: Reports: Coffee - Recreational Drug Use Recreational Drug Use: No H&P Review of Systems - Review of Systems: Review Of Systems: See Below General: Reports: Weakness, Decreased Appetite, Weight Loss. Denies: Weight Gain HEENT: Reports: No Symptoms Pulmonary: Reports: No Symptoms Cardiovascular: Reports: Syncope. Denies: Chest Pain, Edema Gastrointestinal: Reports: No Symptoms Genitourinary: Reports: No Symptoms Musculoskeletal: Reports: Hand Pain (bothersome ganglion cyst right wrist) Skin: Reports: Lumps Psychiatric: Reports: Anxiety Neurological: Reports: Difficulty Walking Hematologic/Lymphatic: Reports: Anemia Immunologic: Reports: No Symptoms Exam - Exam Exam: See Below - Vital Signs Vital Signs: Last Vital Signs Temp 98.3 F 02/12/19 06:24 Pulse 72 02/12/19 09:16 Resp 24 H 02/12/19 06:24 BP 167/77 H 02/12/19 09:16 Pulse Ox 96 02/12/19 06:24 Weight: 94 lb 11.2 oz - Exam Quality Assessment: No: Supplemental Oxygen, DVT Prophylaxis General: Alert, Oriented, Cooperative, Mild Distress HEENT: Hearing Intact, Mucosa Moist & [place] Neck: Supple Lungs: Clear to Auscultation, Normal Respiratory Effort Cardiovascular: Regular Rate, Regular Rhythm GI/Abdominal Exam: Soft (Female) Exam: Deferred Back Exam: No: CVA Tenderness (L), CVA Tenderness (R) Extremities: No Pedal Edema Peripheral Pulses: 1+: Radial (R), 2+: Radial (L) Skin: Other (ganglion cyst right wrist ) Neurological: Cranial Nerves Intact, Normal Speech, Normal Tone. No: Focal Deficit, Clonus Neuro Extensive - Mental Status: Alert, Oriented x3 Neuro Extensive - Motor, Sensory, Reflexes: CN II-XII Intact Psychiatric: Alert, Anxious (Mildly anxious when she recollects events and worries about her future--she feels she is "falling apart") - Patient Data Lab Results Last 24 hrs: Laboratory Results - last 24 hr 02/11/19 02/11/19 02/11/19 Range/Units 11:45 11:45 11:45 WBC 8.91 (5.00-10.00) 10^3/uL RBC 3.12 L (3.80-5.50) 10^6/uL Hgb 10.5 L (12.0-16.0) g/dL Hct 31.6 L (37.0-47.0) % MCV 101.3 H (82.0-92.0) fL MCH 33.7 H (27.0-31.0) pg MCHC 33.2 (32.0-36.0) g/dL RDW 13.4 (11.5-14.5) % Plt Count 307 (150-400) 10^3/uL MPV 8.8 (7.4-10.4) fL Add Manual Diff Yes Neutrophils % (Manual) 94 H (50-70) % Lymphocytes % (Manual) 3 L (20-40) % Monocytes % (Manual) 3 (2-8) % Absolute Neutrophils 8.3754 Lymphocytes # (Manual) 0.2673 Monocytes # (Manual) 0.2673 PT 9.8 (8.9-11.4) SEC INR 1.0 (0.9-1.1) APTT 22.1 L (23.1-31.9) SEC Sodium 141 (136-145) mmol/L Potassium 4.3 (3.3-5.3) mmol/L Chloride 105 (98-115) mmol/L Carbon Dioxide 28.4 (21.0-32.0) mmol/L Anion Gap 11.9 (5-15) mmol/L BUN 35 H (6-25) mg/dL Creatinine 1.47 H (0.51-1.17) mg/dL Est Cr Clr Drug Dosing 19.11 mL/min Estimated GFR (MDRD) 34 mL/min Glucose 137 H (75 - 99) mg/dL Calcium 9.0 (8.7-10.3) mg/dL Magnesium 1.6 L (1.8-2.4) mg/dL Total Bilirubin 0.3 (0.2-1.0) mg/dL AST 22 (15-37) U/L ALT 20 (12-78) U/L Alkaline Phosphatase 61 (46-116) IU/L Troponin I < 0.04 (0.00-0.070) ng/mL Total Protein 6.3 L (6.4-8.2) g/dL Albumin 2.92 L (3.00-4.80) g/dL Specimen Type Urine Color (YELLOW) Urine Appearance (CLEAR) Urine pH (5.0-9.0) Ur Specific [place] (1.005-1.030) Urine Protein (NEGATIVE) mg/dL Urine Glucose (UA) (NEGATIVE) mg/dL Urine Ketones (NEGATIVE) mg/dL Urine Occult Blood (NEGATIVE) Urine Nitrite (NEGATIVE) Urine Bilirubin (NEGATIVE) Urine Urobilinogen (0.2-1.0) E.U./dL Ur Leukocyte Esterase (NEGATIVE) Urine RBC (0-5) /HPF Urine WBC (0-5) /HPF Ur Epithelial Cells /LPF Urine Bacteria (NONE TO FEW) /HPF Hyaline Casts (NEGATIVE) /LPF 02/11/19 Range/Units 12:38 WBC (5.00-10.00) 10^3/uL RBC (3.80-5.50) 10^6/uL Hgb (12.0-16.0) g/dL Hct (37.0-47.0) % MCV (82.0-92.0) fL MCH (27.0-31.0) pg MCHC (32.0-36.0) g/dL RDW (11.5-14.5) % Plt Count (150-400) 10^3/uL MPV (7.4-10.4) fL Add Manual Diff Neutrophils % (Manual) (50-70) % Lymphocytes % (Manual) (20-40) % Monocytes % (Manual) (2-8) % Absolute Neutrophils Lymphocytes # (Manual) Monocytes # (Manual) PT (8.9-11.4) SEC INR (0.9-1.1) APTT (23.1-31.9) SEC Sodium (136-145) mmol/L Potassium (3.3-5.3) mmol/L Chloride (98-115) mmol/L Carbon Dioxide (21.0-32.0) mmol/L Anion Gap (5-15) mmol/L BUN (6-25) mg/dL Creatinine (0.51-1.17) mg/dL Est Cr Clr Drug Dosing mL/min Estimated GFR (MDRD) mL/min Glucose (75 - 99) mg/dL Calcium (8.7-10.3) mg/dL Magnesium (1.8-2.4) mg/dL Total Bilirubin (0.2-1.0) mg/dL AST (15-37) U/L ALT (12-78) U/L Alkaline Phosphatase (46-116) IU/L Troponin I (0.00-0.070) ng/mL Total Protein (6.4-8.2) g/dL Albumin (3.00-4.80) g/dL Specimen Type [place] Urine Color Yellow (YELLOW) Urine Appearance Clear (CLEAR) Urine pH 6.0 (5.0-9.0) Ur Specific [place] 1.015 (1.005-1.030) Urine Protein 100 H (NEGATIVE) mg/dL Urine Glucose (UA) Negative (NEGATIVE) mg/dL Urine Ketones Negative (NEGATIVE) mg/dL Urine Occult Blood Negative (NEGATIVE) Urine Nitrite Negative (NEGATIVE) Urine Bilirubin Negative (NEGATIVE) Urine Urobilinogen 0.2 (0.2-1.0) E.U./dL Ur Leukocyte Esterase Negative (NEGATIVE) Urine RBC Not seen (0-5) /HPF Urine WBC 0-5 (0-5) /HPF Ur Epithelial Cells Rare /LPF Urine Bacteria Rare (NONE TO FEW) /HPF Hyaline Casts Occasional H (NEGATIVE) /LPF Result Diagrams: 02/11/19 11:45 02/11/19 11:45 Problem List Initiated/Reviewed/Updated: Yes Orders Last 24hrs: Active Orders 24 hr Category Date Time Status Patient Status [ADT] Routine ADT 02/11/19 13:16 Ordered Dietary Supplements [RC] ACBED Care 02/12/19 08:00 Active Oxygen Therapy [RC] .PRN Care 02/11/19 13:16 Active Peripheral IV Care [RC] 0900,2100 Care 02/11/19 11:35 Active Telemetry Monitoring [Cardiac Monitoring] [RC] 0700, Care 02/11/19 11:16 Active 1100,1500,1900,2300,0300 VTE/DVT Education [RC] PER UNIT ROUTINE Care 02/11/19 13:16 Active Vital Signs [RC] 0700,1100,1500,1900,2300,0300 Care 02/11/19 13:16 Active Regular Diet [DIET] Diet 02/11/19 Dinner Active Chest 1V Frontal [CR] Stat Exams 02/11/19 12:05 Taken Lumbar Spine 2 or 3V [CR] Stat Exams 02/11/19 12:05 Taken Sacrum Coccyx Min 2V [CR] Stat Exams 02/11/19 12:05 Taken Acetaminophen [Tylenol Arthritis Pain] Med 02/12/19 09:00 Active 1,300 mg PO 0900 Acetaminophen [Tylenol Arthritis Pain] Med 02/11/19 21:00 Active 650 mg PO BEDTIME Atropine [Atropine 0.1 MG/ML] Med 02/11/19 15:53 Active See Dose Instructions IVPUSH ASDIRECTED PRN Calcium Citrate/Vitamin D3 [Calcium Citrate + D] Med 02/11/19 21:00 Active 1 tab PO BID Donepezil [Aricept] Med 02/11/19 21:00 Active 10 mg PO BEDTIME EPINEPHrine [EPINEPHrine 1:10,000] Med 02/11/19 15:53 Active 1 mg IVPUSH ASDIRECTED PRN Fluticasone Propionate [Flonase] Med 02/12/19 09:00 Active 0 gm NASBOTH DAILY Levothyroxine [Synthroid] Med 02/12/19 07:30 Active 50 mcg PO ACBREAKFAST Lidocaine 2% [Xylocaine 2%] Med 02/11/19 15:53 Active See Dose Instructions IVPUSH ASDIRECTED PRN Loperamide [Imodium] Med 02/11/19 15:53 Pending 4 mg PO ASDIRECTED PRN Lutein/Minerals/Vit A,C & E [Ocuvite] Med 02/11/19 21:00 Active 1 each PO BEDTIME Nitroglycerin [Nitrostat] Med 02/11/19 15:53 Active 0.4 mg SL ASDIRECTED PRN Polyethylene Glycol 3350 [MiraLAX] Med 02/12/19 09:00 Active 17 gm PO Q2D Sodium Chloride 0.9% [Normal Saline] 500 ml Med 02/11/19 11:45 Active IV ASDIRECTED Sodium Chloride 0.9% [Saline Flush] Med 02/11/19 11:34 Active 10 ml FLUSH Q8HR PRN Verapamil [Calan SR] Med 02/12/19 09:00 Active 120 mg PO DAILY Peripheral IV Insertion Adult [OM.PC] Routine Oth 02/11/19 11:34 Ordered Resuscitation Status Routine Resus Stat 02/11/19 13:15 Ordered EKG 12 Lead [EK] Routine Ther 02/11/19 11:26 Ordered Medication Orders Acetaminophen (Tylenol Arthritis Pain) 650 mg PO BEDTIME [facility] Last Admin: 02/11/19 21:33 Dose: 650 mg Acetaminophen (Tylenol Arthritis Pain) 1,300 mg PO 0900 [facility] Last Admin: 02/12/19 09:15 Dose: 1,300 mg Atropine Sulfate (Atropine 0.1 Mg/Ml) 0 mg IVPUSH ASDIRECTED PRN PRN Reason: Heart. Calcium Citrate (Calcium Citrate + D) 1 tab PO BID [facility] Last Admin: 02/12/19 09:16 Dose: 1 tab Admin: 02/11/19 21:33 Dose: 1 tab Donepezil HCl (Aricept) 10 mg PO BEDTIME [facility] Last Admin: 02/11/19 21:33 Dose: 10 mg Epinephrine HCl (Epinephrine 1:10,000) 1 mg IVPUSH ASDIRECTED PRN PRN Reason: Heart. Fluticasone Propionate (Flonase) 0 gm NASBOTH DAILY [facility] Last Admin: 02/12/19 09:15 Dose: 1 spray Sodium Chloride (Normal Saline) 500 mls @ 500 mls/hr IV ASDIRECTED [facility] Last Admin: 02/11/19 12:17 Dose: 500 mls/hr Levothyroxine Sodium (Synthroid) 50 mcg PO ACBREAKFAST [facility] Last Admin: 02/12/19 07:30 Dose: 50 mcg Lidocaine HCl (Xylocaine 2%) 0 mg IVPUSH ASDIRECTED PRN PRN Reason: Heart. Loperamide HCl (Imodium) 4 mg PO ASDIRECTED PRN PRN Reason: Diarrhea Multivitamins/Minerals (Ocuvite) 1 each PO BEDTIME [facility] Last Admin: 02/11/19 21:33 Dose: 1 each Nitroglycerin (Nitrostat) 0.4 mg SL ASDIRECTED PRN PRN Reason: Heart. Polyethylene Glycol (Miralax) 17 gm PO Q2D [facility] Sodium Chloride (Saline Flush) 10 ml FLUSH Q8HR PRN PRN Reason: keep vein open Verapamil HCl (Calan Sr) 120 mg PO DAILY [facility] Last Admin: 02/12/19 09:16 Dose: 120 mg Assessment/Plan Comment:: History of present illness Mrs Gonzalez is a very pleasant elderly lady was admitted to inpatient status due to weakness, debilitation, multiple falls increasing confusion and symptoms suggestions of syncope episodes. Patient resides at [facility] and her granddaughter is a nurse practitioner was in the ED to provide history stating that her father was speaking to the mother the morning of admission when she seemed confused and she told her that she fell 4 times this morning. Granddaughter says that her grandmother seemed to have a 10-second delay in responding, so she decided to contact EMS for transport to ER. Since presentation upon arrival in the ED moderately confused with history of dementia at baseline, however, recognize her granddaughter without difficulty. At this time patient states that she has no discomfort, but said that she felt weak and fell 4 times this morning. Patient does not describe falls. At the time of presentation the patient denied chest pain, shortness of breath, n/v/d, dysuria, visual disturbance or headaches. She was vague on describing her falls. Recent admission a few weeks ago into observation without any definitive diagnosis. Primary hospital problems Near-syncope Frequent falls Protein malnutrition/wt loss Chronic problems Hypertension, WNL, orthostatics q shift HLD, not in statin-benefit group CKD, Stage III, creat baseline 1.4-1.6 Hypothyroidism, TSH 1.8 Hyperparathyroidism, assess PTH Dementia, some memory loss, assess PTH/ionized ca+ OAB, stable Ganglilon cyst Anemia, Overall plan/disposition --Continue inpatient stay --Discontinue telemetry --Orthostatic vital signs daily --PT evaluation --Ionized calcium --Assess PTH --Fall precautions --Delirium prophylaxis, schedule Rozerem, ear plugs PRN --Changed to DO NOT RESUSCITATE Discharge planning Anticipate patient will need higher level of care than what she is receiving at [facility]; spoke with Son-Aleks, Possible LTC placement however tomorrow being holiday will have to evaluate patient today with physical therapy to see if she qualifies for swing bed here at [facility].
[2019-02-12] MEDS: Donepezil 10 MG Tab PO SCH (20:11)
[2019-02-12] MEDS: Lutein/Minerals/Vitamins A, C & E Tab PO SCH (20:11)
[2019-02-13] MEDS: Levothyroxine 50 MCG Tab PO SCH (07:37)
[2019-02-13] MEDS: Calcium Citrate/Vitamin D3 315 MG-250 Unit Tab PO SCH ×2 (08:34→20:37)
[2019-02-13] MEDS: Verapamil 120 MG Tab.ER PO SCH (08:34)
[2019-02-13] MEDS: Acetaminophen 650 MG Tab.ER PO SCH ×2 (08:34→20:36)
[2019-02-13] MEDS: Fluticasone Propionate Nasal Spray 16 GM Bottle NASBOTH SCH (08:35)
--- NOTE | 2019-02-13 13:35 | PN ---
02/13/2019 PATIENT NAME: AKILA GEE HISTORY OF PRESENT ILLNESS: Mrs. Gee is an elderly female patient who was admitted to inpatient status due to weakness, debilitation, falls, and increasing confusion. There were suggestions of possible near syncopal episodes. The patient currently was residing at the assisted living center. During the day of admission, she reports that she became quite overheated in her home and actually slipped and fell to the floor. It is noted that her recall of the episode varies as, at one time she states she fell to the floor by tripping and another time, she said that she nearly passed out and also states that she fell due to being overheated. She denies any pain or discomfort today. She offers that she rested well during the night and that she feels that her strength has improved somewhat. She would like to be up and about more today to see if she can tolerate the increased activity. Since her admission to the hospital, her vital signs have been stable. Orthostatic blood pressures have been stable. Her telemetry has been discontinued. Her hemoglobin was 10.5. Physical therapy will be evaluating and making recommendations for the patient today. A social service consult has also been requested for evaluation of placement status. REVIEW OF SYSTEMS: CONSTITUTIONAL: She has no complaints of pain or discomfort today. HEENT: She denies headaches, earache. There is no nasal drainage or sore throat. RESPIRATORY: She has no cough or congestion. CARDIOVASCULAR: No complaints of lightheadedness, chest discomfort, or palpitations. GI: Her appetite has been good. She has had no nausea or vomiting. MUSCULOSKELETAL: She complains of no pain or discomfort in relation to her falls. SKIN: She has no rashes, sores, or moles. NEUROLOGICAL: She does vary in her recall of her fall incidence and also of her living status. PHYSICAL EXAMINATION: VITAL SIGNS: 145/75, 97.9, 73, and 20 and her O2 saturation is 96%. CONSTITUTIONAL: A pleasant, cooperative, elderly female. HEENT: Head is normocephalic. No conjunctival erythema. No nasal discharge. RESPIRATORY: Lung sounds are clear to auscultation without cough or congestion. CARDIOVASCULAR: Heart rate and rhythm are regular, S1, S2. ABDOMEN: Soft, nontender. Bowel sounds are present. EXTREMITIES: Noted no lower extremity edema. Pedal pulses present. NEUROLOGICAL: The patient is alert. She responds to questions, however, responses do vary in recall. IMPRESSION AND PLAN: Near syncopal episode with falls in the home and decreased strength and endurance with nutritional concerns. Debilitation. Increased confusion/Dementia. PLAN: Plan is that she will continue on her current hospitalization medications. Her vital signs will be changed to every 8 hours. We will discontinue the orthostatic blood pressures. A PTH and calcium are pending. Physical therapy evaluation with recommendations is in process. Social Service will consult for consideration of post discharge planning for placement. Her previous x-rays from her initial ER were reviewed, they are all negative for acute findings. Discussed case with Dr. Garcia. /[id number]/MODL MTDD
[2019-02-13] MEDS: Lutein/Minerals/Vitamins A, C & E Tab PO SCH (20:36)
[2019-02-13] MEDS: Donepezil 10 MG Tab PO SCH (20:36)
[2019-02-14] MEDS: Levothyroxine 50 MCG Tab PO SCH (06:34)
[2019-02-14] MEDS: Polyethylene Glycol 3350 Powder 17 GM Packet PO SCH (09:16)
[2019-02-14] MEDS: Verapamil 120 MG Tab.ER PO SCH (09:16)
[2019-02-14] MEDS: Acetaminophen 650 MG Tab.ER PO SCH (09:16)
[2019-02-14] MEDS: Calcium Citrate/Vitamin D3 315 MG-250 Unit Tab PO SCH (09:16)
[2019-02-14] MEDS: Fluticasone Propionate Nasal Spray 16 GM Bottle NASBOTH SCH (09:17)
[2019-02-14 10:12] LABS: ANION GAP 13.6 mmol/L (5-15)
[2019-02-14] MEDS ORDERED: Magnesium Hydroxide 400 MG/5 ML Susp 30 ML Cup PO ONE (10:47)
[2019-02-14] MEDS ORDERED: Magnesium Oxide 500 MG Tab PO SCH (11:00)
[2019-02-14] MEDS ORDERED: Polyethylene Glycol 3350 Powder 17 GM Packet PO SCH (11:00)
[2019-02-14] MEDS ORDERED: Verapamil 120 MG Tab.ER PO SCH (11:00)
--- NOTE | 2019-02-14 11:21 | PCM.DCSUM1 ---
Discharge Summary - Hospital Course Free Text/Narrative:: Date of admission: 02/11/19 Date of discharge: 02/14/19 Admission diagnoses: Near syncope/possible syncope Frequent falls Protein malnutrition, moderate Weight loss: 5% in 3mos. HTN HLD CKD, stage III OAB Hypothyroidism Hyperparathyroidism Anemia of chronic disease Macrocytosis: Recent B12 and folate normal. Osteoporosis Dementia Chronic rhinitis Discharge diagnoses: Near syncope/possible syncope Deconditioning Frequent falls Protein malnutrition, moderate Weight loss: 5% in 3mos. Hypomagnesemia HTN HLD CKD, stage III OAB Hypothyroidism Hyperparathyroidism Anemia of chronic disease Macrocytosis: Recent B12 and folate normal. Osteoporosis Dementia, progressive Chronic rhinitis Consultations: Physical therapy director agricultural services Procedures: None Hospital course: Mrs. Gonzalez is an 89yoF with a history notable for HTN, CKD, and dementia, who previously resided at [facility], where she has been requiring increasing assistance and having worsening confusion and ability to perform ADLs. On the morning of admission, she was on the phone with her son when she became more confused and endorsed several falls that morning. Her granddaughter visited her and she witnessed an episode lasting 10 seconds in which she was unresponsive and then when she came to, was more confused than usual. She was evaluated in the ED where no focal findings were noted, but that she was requiring increased assistance. Due to need for close cardiac monitoring and evaluation, she was admitted. Telemetry was without concerns. She had improvement in presyncopal symptoms and no complications arose during her stay. She was noted to be constipated and she had BM with MoM followed by increase in baseline bowel regimen. Physical therapy was consulted and recommends SNF placement. director agricultural services assisted with discharge planning. Had a long discussion with the patient and her son and will discharge to [facility] for ongoing care, given need for increased monitoring and assistance with ADLs in the setting of progressive dementia and recurrent falls with debility. Discharge and follow-up recommendations: - Discharge to [facility], with physical therapy - Medication changes at discharge: - New: Magnesium Oxide 500mg daily - Changed: Verapamil 240mg daily - Changed: PEG 1capfull daily - Follow-up on next [facility] rounds - Review BPs - Recheck magnesium with next labs - Discharge Data Discharge Date: 02/14/19 Discharge Disposition: DC/Tfer to SNF 03 Condition: Good - Patient Summary/Data Consults: Consultations 02/12/19 10:37 Consult to Physical Therapy [PT Evaluation and Treatment] [CONS] Routine - Patient Instructions Diet: Regular Diet as Tolerated Activity: As Tolerated Showering/Bathing: May Shower - Discharge Plan *PRESCRIPTION DRUG MONITORING PROGRAM REVIEWED*: Not Applicable *COPY OF PRESCRIPTION DRUG MONITORING REPORT IN PATIENT WEN: Not Applicable Prescriptions/Med Rec: Magnesium Oxide 500 mg PO DAILY #30 tablet Verapamil [Calan SR] 240 mg PO DAILY #60 tab.er Home Medications: Home Meds Levothyroxine [Synthroid] 50 mcg PO ACBREAKFAST 08/26/16 [History] Acetaminophen [Acetaminophen ER] 1,300 mg PO 0900 12/29/18 [History] Acetaminophen [Acetaminophen ER] 650 mg PO BEDTIME 12/29/18 [History] Calcium Citrate/Vitamin D3 [Calcitrate + Vit D Cap (315 MG/250 UNITS)] 1 each PO BID 12/29/18 [History] Donepezil [Aricept] 10 mg PO BEDTIME 12/29/18 [History] Loperamide [Imodium] 4 mg PO ASDIRECTED PRN 12/29/18 [History] Multivitamin W-Minerals/Lutein [Vision Plus Lutein Vitamin] 1 each PO BEDTIME [History] Fluticasone Propionate [Flonase] 0 gm NASBOTH DAILY 7 Days #1 bottle 12/31/18 [ Rx] Magnesium Oxide 500 mg PO DAILY #30 tablet 02/14/19 [Rx] Polyethylene Glycol 3350 [MiraLAX] 17 gm PO DAILY packet 02/14/19 [Rx] Verapamil [Calan SR] 240 mg PO DAILY #60 tab.er 02/14/19 [Rx] Referrals: Kori Min MD [Physician] - (next [facility] rounds) - Discharge Summary/Plan Comment DC Time >30 min.: Yes - General Info Subjective Update: Denies concerns this morning. Improved lightheadedness. Had bowel movement. Agreeable to SNF placement. - Patient Data Vitals - Most Recent: Last Vital Signs Temp 36.9 C 02/14/19 06:41 Pulse 80 02/14/19 09:16 Resp 16 02/14/19 06:41 BP 159/75 H 02/14/19 09:16 Pulse Ox 96 02/14/19 06:41 Orthostatic Blood Pressure [ 138/90 Standing] Orthostatic Blood Pressure [ 158/84 Sitting] Orthostatic Blood Pressure [ 159/65 Supine] Weight - Most Recent: 42.955 kg I&O - Last 24 hours: Intake & Output 02/13/19 02/14/19 02/14/19 22:59 06:59 14:59 Intake Total 350 0 Output Total 450 700 Balance -100 -700 Lab Results - Last 24 hrs: Laboratory Results - last 24 hr 02/14/19 Range/Units 09:45 Sodium 141 (136-145) mmol/L Potassium 3.8 (3.3-5.3) mmol/L Chloride 104 (98-115) mmol/L Carbon Dioxide 27.2 (21.0-32.0) mmol/L Anion Gap 13.6 (5-15) mmol/L BUN 37 H (6-25) mg/dL Creatinine 1.50 H (0.51-1.17) mg/dL Est Cr Clr Drug Dosing 17.92 mL/min Estimated GFR (MDRD) 33 mL/min Glucose 195 H (75 - 99) mg/dL Calcium 8.9 (8.7-10.3) mg/dL Magnesium 1.4 L (1.8-2.4) mg/dL Med Orders - Current: Current Medications Acetaminophen (Tylenol Arthritis Pain) 650 mg PO BEDTIME [facility] Last Admin: 02/13/19 20:36 Dose: 650 mg Acetaminophen (Tylenol Arthritis Pain) 1,300 mg PO 0900 [facility] Last Admin: 02/14/19 09:16 Dose: 1,300 mg Calcium Citrate (Calcium Citrate + D) 1 tab PO BID [facility] Last Admin: 02/14/19 09:16 Dose: 1 tab Donepezil HCl (Aricept) 10 mg PO BEDTIME [facility] Last Admin: 02/13/19 20:36 Dose: 10 mg Fluticasone Propionate (Flonase) 0 gm NASBOTH DAILY [facility] Last Admin: 02/14/19 09:17 Dose: 1 spray Levothyroxine Sodium (Synthroid) 50 mcg PO ACBREAKFAST [facility] Last Admin: 02/14/19 06:34 Dose: 50 mcg Loperamide HCl (Imodium) 4 mg PO ASDIRECTED PRN PRN Reason: Diarrhea Magnesium Oxide (Magnesium Oxide) 500 mg PO DAILY [facility] Multivitamins/Minerals (Ocuvite) 1 each PO BEDTIME [facility] Last Admin: 02/13/19 20:36 Dose: 1 each Polyethylene Glycol (Miralax) 17 gm PO DAILY [facility] Ramelteon (Rozerem) 8 mg PO BEDTIME [facility] Last Admin: 02/13/19 20:36 Dose: 8 mg Sodium Chloride (Saline Flush) 10 ml FLUSH Q8HR PRN PRN Reason: keep vein open Verapamil HCl (Calan Sr) 120 mg PO ONETIME MAGUI Verapamil HCl (Calan Sr) 240 mg PO DAILY [facility] Discontinued Medications Atropine Sulfate (Atropine 0.1 Mg/Ml) 0 mg IVPUSH ASDIRECTED PRN PRN Reason: Heart. Epinephrine HCl (Epinephrine 1:10,000) 1 mg IVPUSH ASDIRECTED PRN PRN Reason: Heart. Sodium Chloride (Normal Saline) 500 mls @ 500 mls/hr IV ASDIRECTED [facility] Last Admin: 02/11/19 12:17 Dose: 500 mls/hr Sodium Chloride (Normal Saline) 500 mls @ as directed IV .STK-MED ONE Stop: 02/11/19 12:18 Lidocaine HCl (Xylocaine 2%) 0 mg IVPUSH ASDIRECTED PRN PRN Reason: Heart. Magnesium Hydroxide (Milk Of Magnesia) 30 ml PO ONETIME ONE Stop: 02/14/19 10:48 Nitroglycerin (Nitrostat) 0.4 mg SL ASDIRECTED PRN PRN Reason: Heart. Polyethylene Glycol (Miralax) 17 gm PO Q2D [facility] Last Admin: 02/14/19 09:16 Dose: 17 gm Verapamil HCl (Calan Sr) 120 mg PO DAILY [facility] Last Admin: 02/14/19 09:16 Dose: 120 mg - Exam Physical Findings Comments:: GENERAL: Elderly white female sitting in bedside chair in no acute distress. Son Aleks, at bedside. HEENT: Normocephalic, atraumatic. Conjunctiva clear. Nares patent with mild erythema bilaterally. Mucous membranes moist. NECK: Supple, no masses. CV: Regular rate and rhythm, no murmurs, rubs, or gallops. 2+ radial pulses. PULMONARY: Normal effort, diminished airflow in bases, otherwise clear to auscultation bilaterally, no wheezes, rales, or rhonchi. ABDOMEN: Positive bowel sounds, soft, nontender, nondistended. EXTREMITIES: No edema, cyanosis, or clubbing. MUSCULOSKELETAL: Moves all extremities well. NEUROLOGICAL: No obvious deficits. DERMATOLOGIC: No rashes or suspicious lesions in exposed areas. PSYCHIATRIC: Alert, interactive, appropriate affect, confused.
[2019-02-14 11:27] VITALS: BP 157/74; PULSE 86
[2019-02-15] MEDS ORDERED: Verapamil 120 MG Tab.ER PO SCH (09:00)
== END 2019-02-14 11:45 | DRG 948 ==
LOC: KA.ED 11:10 → KA.MS 13:15
PROVIDERS: ADMIT Physician Assistant Surgical; ATTEND Family Medicine
DX: R53.1 Weakness (principal); Z68.1 Body mass index [BMI] 19.9 or less, adult; R55 Syncope and collapse; E44.0 Moderate protein-calorie malnutrition; Z91.81 History of falling; N28.9 Disorder of kidney and ureter, unspecified; Z66 Do not resuscitate; M19.91 Primary osteoarthritis, unspecified site; H54.7 Unspecified visual loss; I12.9 Hypertensive chronic kidney disease with stage 1 through stage 4 chronic kidney disease, or unspecified chronic kidney disease; E21.3 Hyperparathyroidism, unspecified; D63.1 Anemia in chronic kidney disease; N32.81 Overactive bladder; W19.XXXA Unspecified fall, initial encounter; M19.90 Unspecified osteoarthritis, unspecified site; E78.00 Pure hypercholesterolemia, unspecified; F03.90 Unspecified dementia, unspecified severity, without behavioral disturbance, psychotic disturbance, mood disturbance, and anxiety; E03.9 Hypothyroidism, unspecified; Z98.49 Cataract extraction status, unspecified eye; Z90.49 Acquired absence of other specified parts of digestive tract; Z79.890 Hormone replacement therapy; Z90.89 Acquired absence of other organs; Z79.899 Other long term (current) drug therapy; Z88.0 Allergy status to penicillin; Z88.1 Allergy status to other antibiotic agents; Z88.8 Allergy status to other drugs, medicaments and biological substances
CPT/HCPCS: 36415; 71045; 72100; 72220; 80053; 81001; 83735; 84484; 85025; 85610; 85730; 93005; 96360; 99284; 99285; J7040; 80048; 82330; 83970; 97110-GP; 97161-GP; A9270-GY; J7050